=== PATIENT | female | born 1990 | race Two or more races ===

== ENCOUNTER 2025-04-10 08:26 | Emergency (ER) | payer BC, SELFPAY ==
[2025-04-10 08:28] VITALS: BMI 33.8
[2025-04-10 08:34] VITALS: BP 117/79; PULSE 66; RESP 18; TEMP 36.9; O2SAT 99
--- NOTE | 2025-04-10 08:40 | EKG_ITS ---
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
--- NOTE | 2025-04-10 08:40 | XR_ITS ---
Examination: CT brain head without contrast. 2-D sagittal coronal reconstructions Date and time of exam:April 10, 2025 0912 hours, comparison October 11, 2012 INDICATIONS: Onset dizziness today CTDI: vol (mGy):47.3 DLP: (mGycm):988 Technique: Multiple CT axial sections of the brain have been obtained, 5 mm slice thickness. Contrast has not been administered. 2-D sagittal, coronal reconstructions have been obtained Low dose protocols were performed. One or more of the following dose reduction techniques were used; automated exposure control, adjustment of the mA and/or KV according to patient size, use of iterative reconstruction technique. Findings: No significant ventricular enlargement. Intra-axial or extra-axial hemorrhage density is not seen. No mass effect or midline shift Basal cisterns are not remarkable. Fourth ventricle is midline. Cranial vault intact. Impression: Negative for acute hemorrhage, mass effect or midline shift Advise clinical correlation and follow-up accordingly
--- NOTE | 2025-04-10 08:41 | PD.EDDIZZY ---
ED Dizzyness RME/HPI General Chief Complaint: Dizziness Stated Complaint: DIZZY, NUMBNESS TO LEFT EAR, NECK PAIN, NAUSEA Time Seen by Provider: 04/10/25 08:40 Source: patient Arrival date/time: 04/10/25 08:26 34-year-old female with no known medical history presents to the emergency room with a chief complaint of left-sided ear pain as well as dizziness and nausea x 2 days Mode of arrival: ambulatory Limitations: no limitations Related Data Home Medications ?Medication ?Instructions ?Recorded ?Confirmed ondansetron HCl 4 mg tablet 4 mg PO QDAY 04/12/21 04/12/21 (Zofran) Previous Rx's ?Medication ?Instructions ?Recorded amoxicillin 875 mg-potassium 1 tab PO BID 7 days #14 tabs 04/10/25 clavulanate 125 mg tablet meclizine 25 mg tablet 25 mg PO BID PRN dizziness #14 tabs 04/10/25 Allergies Allergy/AdvReac Type Severity Reaction Status Date / Time No Known Allergies Allergy Verified 04/10/25 08:27 Review of Systems Review of Systems Systems Reviewed: All systems reviewed, normal except as documented Constitutional Constitutional: Reports system reviewed and no additional complaints, except as documented, Denies fatigue, Denies fever(s), Reports headache(s) and Denies weakness Eyes Eyes: Reports system reviewed and no additional complaints, except as documented, Denies blurry vision and Denies change in vision ENT Ears, Nose, Mouth, and Throat: Reports system reviewed and no additional complaints, except as documented, Denies otalgia, Reports headache(s), Denies nasal congestion, Denies throat swelling and Reports vertigo Cardiovascular Cardiovascular: Reports system reviewed and no additional complaints, except as documented, Denies chest pain, Denies dyspnea and Denies dyspnea on exertion Respiratory Respiratory: Reports system reviewed and no additional complaints, except as documented, Denies chest congestion, Denies cough, Denies dyspnea, Denies dyspnea on exertion and Denies wheezing Gastrointestinal Gastrointestinal: Reports system reviewed and no additional complaints, except as documented, Denies abdominal pain, Denies cramping, Denies nausea and Denies vomiting Genitourinary Genitourinary: Reports system reviewed and no additional complaints, except as documented Musculoskeletal Musculoskeletal: Reports system reviewed and no additional complaints, except as documented and Denies back pain Integumentary/Breasts Skin/Breast: Reports system reviewed and no additional complaints, except as documented and Denies wounds Neurologic Neurologic: Reports system reviewed and no additional complaints, except as documented, Denies confusion, Reports headache(s), Denies lack of coordination, Reports vertigo and Denies weakness Psychiatric Psychiatric: Reports system reviewed and no additional complaints, except as documented, Denies anxiety, Denies confusion, Denies depression, Denies paranoia, Denies suicidal ideation and Denies tactile hallucinations Endocrine Endocrine: Reports system reviewed and no additional complaints, except as documented and Denies fatigue Hematologic/Lymphatic Hematologic/Lymphatic: Reports system reviewed and no additional complaints, except as documented and Denies lymphadenopathy Allergic/Immunologic Allergic/Immunologic: Reports system reviewed and no additional complaints, except as documented, Denies throat swelling, Denies urticaria and Denies wheezing Past Medical History Past Medical History 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); Negative Seizures CARDIAC: Negative Cardiac Disorders or Congestive Heart Failure RESPIRATORY: Negative Chronic Obstructive Pulmonary Disease (COPD), Asthma or Pneumonia GASTROINTESTINAL: Positive Gall Bladder Disease (cholecystectomy); Negative Hemorrhoids GENITOURINARY: Negative Genitourinary Disorders or Renal Disease REPRODUCTIVE: Negative Endometriosis, Pelvic Inflammatory Disease, Previous Pregnancies or Uterine Prolapse MUSCULOSKELETAL: Negative Musculoskeletal Disorders ENDOCRINE: Negative Diabetes Mellitus Type 1 or Diabetes Mellitus Type 2 HEMATOLOGIC: Positive Anemia (iron supplament) PSYCHO/SOCIAL: Positive Anxiety (not taking medication); Negative Depression or Depression OTHER HISTORY: Positive Chicken Pox; Negative Autoimmune Disease, Blood Transfusions, Blood Transfusion Reaction, Anesthesia Reactions, MRSA, VRSA or Vancomycin-Resistant Enterococci Family History FAMILY HISTORY: Negative Family Psychiatric Problems, Family Respiratory Disorders, Family Cardiac Disorders, Family Gastrointestinal Problems, Family Cancer, Family Surgery or Family Anesthesia Reaction Surgical History SURGICAL: Negative Section Social History SMOKING STATUS: Never smoker ED Exam General Limitations: Present no limitations General appearance: Present alert and in no apparent distress Head Head exam: Present atraumatic Eye Eye exam: Present normal appearance, PERRL and EOMI ENT ENT exam: Present normal exam, normal oropharynx and mucous membranes moist Expanded ENT Exam External ear exam: Present normal external inspection TM/Canal exam: Left TM: bulging Neck Neck exam: Present normal inspection, full ROM and trachea midline Chest Chest inspection: Present normal inspection and symmetric chest wall rise Respiratory Respiratory exam: Present normal lung sounds bilaterally Cardiovascular Cardiovascular exam: Present regular rate, normal rhythm and normal heart sounds Abdominal Exam Abdominal exam: Present soft and normal bowel sounds Extremities Exam Extremities exam: Present normal inspection and full ROM Back Exam Back exam: Present normal inspection and full ROM Neurological Exam Neurological exam: Present alert, oriented X3 and CN II-XII intact Psychiatric Psychiatric exam: Present normal affect and normal mood Skin Skin exam: Present warm, dry, intact and normal color Course Quality Measures none Orders Category Date Time Status EKG (ED ONLY) *Do not use* NOW Care 04/10/25 08:[address] head/brain wo con Stat Exams 04/10/25 08:40 Completed EKG (ED Only) Stat Exams 04/10/25 08:40 Draft B-Type Natriuretic Peptide Stat Lab 04/10/25 09:05 Completed CBC Stat Lab 04/10/25 09:05 Completed Comprehensive Metabolic Panel Stat Lab 04/10/25 09:05 Completed HCG Qualitative,Urine Stat Lab 04/10/25 09:11 Completed Troponin I Stat Lab 04/10/25 09:05 Completed Meclizine HCl [Antivert] Med 04/10/25 08:41 Discontinued 50 mg PO X1 ONE Vital Signs Vital signs: Vital Signs Temperature 98.5 F 04/10/25 08:34 Pulse Rate 66 04/10/25 08:34 Respiratory Rate 18 04/10/25 08:34 Blood Pressure 117/79 04/10/25 08:34 Pulse Oximetry (%) 99 04/10/25 08:34 Oxygen Delivery Method Room Air 04/10/25 08:34 Dizziness MDM Narrative MDM Narrative:: 34-year-old female with no known medical history presents to the emergency room with a chief complaint of left-sided ear pain as well as dizziness and nausea x 2 days Patient is hemodynamically stable and in no apparent distress Physical examination shows a normal neurological exam. Pupils are PERRLA EOMs are intact. The patient has no focal deficits ENT examination shows a bulging left-sided tympanic membrane. There is no erythema. There is no external ear canal tenderness. There is no drainage. CT of the head and brain was negative for any acute findings. CBC CMP troponin were all negative Patient was discharged and educated to follow-up with primary care provider in the next 24 to 48 hours and return to the emergency room for any evidence of worsening signs or symptoms Patient data External records reviewed:: [facility] previous records Clinical information provided by:: patient Social determinants that could affect healthcare access:: none Patient has the following chronic illnesses:: No chronic illness How is presenting disease/condition affected by chronic disease/condition?: no chronic disease Evaluation data The following diagnostics were reviewed and interpreted by me:: lab results and radiology exam(s) Lab and/or radiology exams considered but not ordered:: Labs and radiology exams considered and ordered Interpretation Summary: N/A Medications / Prescriptions Medications or Prescriptions considered but not ordered:: Medication given Medication administrations:: Medication Administration History Discontinued Medications Meclizine HCl (Meclizine Hcl 25 Mg Tablet) 50 mg PO X1 ONE Stop: 04/10/25 08:42 Last Admin: 04/10/25 08:59 Dose: 50 mg Documented By: DB Medication given Consultations Consultation(s) initiated? (list below): No Diagnosis Dizziness Differential Diagnosis: benign paroxysmal positional vertigo Most likely diagnosis given after review of the tests above:: Vertigo Admission Indicated Admission indicated?: not indicated Admission Request Was there a request for admission?: No Disposition Plan Disposition Plan: Discharge Discharge Attestation Discharge Attestation: The patient and all family members were given an opportunity to ask questions and understood the discharge instructions. Discharge instructions specifically effects, indications for sooner follow up or return to the emergency department, and the expected course of current diagnosis. Patient condition: Stable Discharge Plan Plan Patient Disposition: HOME (Self Care) Discharge Disposition comment: Stable Prescriptions/Referrals Prescriptions/Med Rec: New meclizine 25 mg tablet 25 mg PO BID PRN (Reason: dizziness) Qty: 14 0RF amoxicillin-pot clavulanate 875-125 mg tablet 1 tab PO BID 7 Days Qty: 14 0RF No Action ondansetron HCl [Zofran] 4 mg Tablet 4 mg PO QDAY Referrals: Krish Diggs MD [Primary Care Provider, Family Practice] - In 1 week Problem List Clinical Impression: Benign paroxysmal positional vertigo Patient/Caregiver Discharge Instructions Education Materials: ED BPV Vertigo Additional Instructions: Please follow-up with your primary care provider in the next [address] of your head and brain was negative for any acute findings. Your blood work and urinalysis were within normal limits Medication was sent to your pharmacy please pick it up and take it as indicated For any evidence of worsening signs or symptoms return the emergency room immediately Print Language: Wolof Stand Alone Forms: Ayla Award Info., Work/School Release, Patient Portal Info Letter
[2025-04-10] MEDS: MECLIZINE HCL 25 MG TABLET 50 MG PO (08:59)
[2025-04-10 09:33] LABS: HCG Qualitative,Urine Negative
[2025-04-10 09:40] LABS: Basophils # (Auto) 0.1 Thou/mm3 (0.0-0.2); Basophils % (Auto) 1 % (0-2.5); Eosinophils # (Auto) 0.2 Thou/mm3 (0.0-0.5); Eosinophils % (Auto) 5 % (0-10); Hematocrit 35.2 % (36.0-46.0); Hemoglobin 11.0 g/dL (12.0-16.0); Immature Granulocytes Auto 0.01 Thou/mm3 (0.00-0.00); Lymphocytes # (Auto) 1.2 Thou/mm3 (1.0-4.8); Lymphocytes % (Auto) 26 % (10-50); Mean Corpuscular HGB Conc 31.3 g/dl (31.0-37.0); Mean Corpuscular Hemoglobin 25.0 pg (25.0-35.0); Mean Corpuscular Volume 80 fL (80-100); Monocytes # (Auto) 0.4 Thou/mm3 (0.0-0.8); Monocytes % (Auto) 9 % (0-12); Neutrophils # (Auto) 2.7 Thou/mm3 (1.8-7.7); Neutrophils % (Auto) 59 % (37-80); Nucleated Red Blood Cell # 0.00 Thou/mm3 (0.00-0.00); Nucleated Red Blood Cell % 0 /100 WBC (0); Platelet Count 323 Thou/mm3 (140-440); RDW Standard Deviation 46.2 fL (36.4-46.3); Red Blood Count 4.40 Miln/mm3 (4.00-5.20); White Blood Count 4.6 Thou/mm3 (3.6-11.0)
[2025-04-10 10:05] LABS: Alanine Aminotransferase 12 U/L (10-49); Albumin, Serum 4.7 gm/dL (3.5-5.0); Albumin/Globulin Ratio 2.0 (1.2-2.2); Alkaline Phosphatase 77 U/L (46-116); Anion Gap 10 (7-16); Aspartate Amino Transferase 22 U/L (0-34); BUN/Creatinine Ratio 8 Ratio (12-20); Bilirubin,Total 0.6 mg/dL (0.3-1.2); Blood Urea Nitrogen 5 mg/dL (9-23); Calcium 9.4 mg/dL (8.3-10.6); Calcium (Corrected) 9.4 mg/dL (8.5-10.1); Carbon Dioxide 25.9 mMol/L (20.0-31.0); Chloride 105 mMol/L (98-107); Creatinine (Component) 0.6 mg/dL (0.6-1.3); Estimated Creatinine Clearance 130.2 mL/min (>60); Globulin 2.4 gm/dL (2.3-3.5); Glucose 93 mg/dL (74-106); Osmolality,Calculated 278 (275-295); Potassium 3.8 mMol/L (3.4-5.1); Sodium 141 mMol/L (136-145); Total Protein 7.1 gm/dL (5.7-8.2); Troponin I < 0.002 ng/mL (0.0-0.045); eGFR > 60 See Note
[2025-04-10 10:13] LABS: B-Type Natriuretic Peptide < 20 pg/mL (0-100)
== END 2025-04-10 11:26 | disposition home or self-care (01) ==
PROVIDERS: Emergency Provider Nurse Practitioner Family; PCP Family Medicine
DX: R42 Dizziness and giddiness (principal); I49.8 Other specified cardiac arrhythmias
CPT/HCPCS: 36415; 70450; 80053; 81025; 83880; 84484; 85025; 93005; 99283; A9270